=== PATIENT | male | born 1965 | race Two or more races ===

== ENCOUNTER 2021-08-27 12:30 | Inpatient (IN) | payer OTHER ==
[~2021-08-27] VITALS: Ht 175.3 cm; Wt 101.6 kg
[2021-08-27] MEDS ORDERED: LIPITOR20 MG PO (14:55)
[2021-08-27] MEDS ORDERED: SYNTHROID125 MCG PO (14:55)
[2021-08-27] MEDS ORDERED: IRBESARTAN150 MG PO (14:55)
[2021-08-27] MEDS ORDERED: AMBIEN10 MG PO (14:56)
[2021-08-31] MEDS ORDERED: PERCOCET 5-3251 EACH PO (11:31)
== END 2021-08-31 12:52 | disposition home or self-care (01) | DRG 331 ==
LOC: O/R 08-28 05:46 → SURG 08-28 12:30 → O/R 08-28 13:35 → SURH 08-28 13:45
PROVIDERS: ADMIT Surgery; ATTEND Surgery
PROC: 0DTL4ZZ Resection of Transverse Colon, Percutaneous Endoscopic Approach (ICD-10-PCS; 2021-08-28)
PROC: 0DTM4ZZ Resection of Descending Colon, Percutaneous Endoscopic Approach (ICD-10-PCS; 2021-08-28)
PROC: 0DTF4ZZ Resection of Right Large Intestine, Percutaneous Endoscopic Approach (ICD-10-PCS; principal; 2021-08-28 16:00)
DX: C18.3 Malignant neoplasm of hepatic flexure (principal); R19.4 Change in bowel habit; R14.0 Abdominal distension (gaseous); R59.0 Localized enlarged lymph nodes; Z20.822 Contact with and (suspected) exposure to COVID-19; I10 Essential (primary) hypertension

== ENCOUNTER 2024-11-23 05:12 | Day surgery (SDC) | payer OTHER ==
[2024-11-15 11:14] VITALS: BP 155/86
[~2024-11-23] VITALS: Ht 175.3 cm; Wt 99.8 kg
[~2024-11-23 05:12] MED LIST: AMBIEN10 MG PO; IRBESARTAN150 MG PO; LIPITOR20 MG PO; PERCOCET 5-3251 EACH PO; SYNTHROID125 MCG PO; TAMS0.4C PO
[2024-11-23] MEDS ORDERED: CEFAZOLIN SODIUM 1,000 MG VIAL ONE (07:13)
[2024-11-23] MEDS ORDERED: BUPIVACAINE HCL/Mpf 0.5% 10ML VIAL ONE (07:23)
[2024-11-23] MEDS ORDERED: LIDOCAINE HCL 1%/EPINEPHRINE 20ML VIAL IJ ONE (07:24)
[2024-11-23] MEDS ORDERED: TRAM1TAB98 PO (07:45)
== END 2024-11-23 11:30 | disposition home or self-care (01) ==
LOC: CIR.AMB 05:12
PROVIDERS: ATTEND Surgery
DX: T82.594A Other mechanical complication of infusion catheter, initial encounter (principal); C18.5 Malignant neoplasm of splenic flexure; I10 Essential (primary) hypertension; E03.8 Other specified hypothyroidism; E78.00 Pure hypercholesterolemia, unspecified